=== PATIENT | female | born 1995 | race Hispanic/Latino ===

== ENCOUNTER 2017-06-21 12:56 | Emergency (ER) | payer BC | END 2017-06-21 13:29 | disposition left against medical advice (07) | LOC: ERS 12:56 | DX: Z53.21 Procedure and treatment not carried out due to patient leaving prior to being seen by health care provider (principal) ==

== ENCOUNTER 2018-01-01 19:59 | Day surgery (SDC) | payer OTHER ==
[2018-01-01 20:42] VITALS: BMI 29.7
[2018-01-01 20:44] VITALS: BP 116/86; TEMP 98.6
[2018-01-01 21:31] LABS: Bilirubin Negative (Negative); Blood, Urine Small (Negative); Clarity CLEAR (Clear); Glucose, Urine (Dipstick) Negative (Negative); Leukocyte Negative (Negative); Nitrite Negative (Negative); Protein, Urine (Dipstick) Negative (Neg-Trace); Specific Gravity, Urine 1.008 (1.002-1.036); Urobilinogen 0.2 mg/dL (0.2-1.0); pH, Urine 7.5 (5.0-9.0)
[2018-01-01 21:33] LABS: Bacteria/HPF None Seen HPF (None Seen); Hyaline Casts/LPF 0-3 HYALINE CAST LPF (0-3 Hyaline); Pathc Cast-AUWi Flag 0.58 (0-2.49); Squamous Epithelial None Seen HPF (0-3); WBC/HPF 0-3 HPF (0-3)
--- NOTE | 2018-01-02 02:20 | SS ---
DATE OF EVALUATION: 01/01/2018 REGULAR PHYSICIAN: Praveen Noyola M.D. EVALUATING PHYSICIAN: Rashawn Cuevas M.D. CHIEF COMPLAINT: Lower abdominal discomfort and vaginal discharge. HISTORY OF PRESENT ILLNESS: Ms. Dickerson is a 22-year-old G2, P1-0-0-1 with an estimated date of confinement of 02/11/2018, who presents complaining of a 2- day history of lower abdominal discomfort with occasional cramping, now complaining of vaginal pressure and white vaginal discharge. She denies ruptured membranes or vaginal bleeding. Her care has been with Dr. Noyola and has been uncomplicated. PAST OBSTETRICAL HISTORY: Includes an uncomplicated vaginal delivery at term in 2015. PAST MEDICAL HISTORY: None. PAST SURGICAL HISTORY: None. CURRENT MEDICATIONS: vitamins. ALLERGIES: No known allergies. SOCIAL HISTORY: She denies tobacco, alcohol, or drug use. FAMILY HISTORY: Unremarkable. REVIEW OF SYSTEMS: Positive for lower abdominal discomfort and vaginal discharge. Negative for nausea, vomiting, fever, chills, vaginal bleeding or ruptured membranes. PHYSICAL EXAMINATION: VITAL SIGNS: Blood pressure 116/86, pulse 85, respirations 18, temperature 98.6. ABDOMEN: Soft, nontender and gravid. PELVIC: Shows the cervix to be closed, 50% effaced with the presenting part high. heart rate tracing is stable. No significant uterine contractions are seen. LABORATORY DATA: Urinalysis is negative with the exception of a small amount of blood on dipstick. No bacteria are seen. X RAY TECH-3 panel is entirely negative. ASSESSMENT: 1. 34 and 1/7 week intrauterine . 2. No evidence of labor. 3. Suspect round ligament pain as etiology for lower abdominal discomfort. PLAN: The patient will be discharged to home. She was told to rest at home tonight and contact Dr. Noyola's office in the morning. She was told to return for regular contractions, ruptured membranes or vaginal bleeding. She voiced understanding of her discharge instructions and was sent home in good condition. PAM
== END 2018-01-01 23:15 | disposition home or self-care (01) ==
LOC: L&D/OP 19:59
PROVIDERS: ATTEND Obstetrics & Gynecology
DX: O99.89 Other specified diseases and conditions complicating pregnancy, childbirth and the puerperium (principal); R10.9 Unspecified abdominal pain; N89.8 Other specified noninflammatory disorders of vagina; Z3A.34 34 weeks gestation of pregnancy
CPT/HCPCS: 81003; 81015; 87480; 87510; 87660; 99284

== ENCOUNTER 2018-01-23 12:46 | Inpatient (IN) | payer OTHER ==
[2018-01-23 16:15] VITALS: BMI 32.3
[2018-01-23] MEDS: Lactated Ringer's 1,000 ML IV SCH ×2 (17:45→19:08)
[2018-01-23] MEDS ORDERED: Zolpidem Tartrate 5 MG TAB PO PRN (18:48)
[2018-01-23] MEDS ORDERED: NS w/ Oxytocin 10 units 500 ML IV SCH (18:48)
[2018-01-23] MEDS ORDERED: Ibuprofen 800 MG TAB PO PRN (18:48)
[2018-01-23] MEDS ORDERED: Butorphanol Tartrate 1 MG/ML VIAL SLOW IVP PRN (18:48)
[2018-01-23] MEDS ORDERED: Lidocaine 1% (PF) 30 ML VIAL SC PRN (18:48)
[2018-01-23] MEDS ORDERED: Promethazine HCl 25 MG/ML VIAL IM PRN (18:48)
[2018-01-23] MEDS ORDERED: HYDROcodone/Acetaminophen 5/325 mg Tablet PO PRN ×2 (18:48)
[2018-01-23] MEDS ORDERED: Ondansetron HCl/PF 4 MG/2 ML Vial IVP PRN (18:48)
[2018-01-23 19:09] LABS: Hemoglobin 12.4 g/dL (12.0-16.0); Mean Corpuscular Hemoglobin 32.8 pg (27.0-31.0); Mean Corpuscular Volume 93.5 fL (78.0-98.0); Mean Platelet Volume 6.7 fL (7.4-10.4); Platelet Count 254 thou/uL (130-400); RBC Distribution Width 11.5 % (11.5-14.5); Red Blood Cell (RBC) Count 3.78 mill/uL (4.20-5.40); White Blood Cell (WBC) Count 12.8 thou/uL (4.8-10.8)
--- NOTE | 2018-01-23 19:34 | ULT ---
LIMITED OBSTETRICAL ULTRASOUND: INDICATIONS: Biophysical profile. FINDINGS: No comparisons. There is a single intrauterine gestation, in vertex presentation. The placenta is posterior in locat ion without evidence of previa. The NO is 8.3 cm, which is just above the 5th percentile for gestational age. The fetus received 2/2 for movement; 2/2 for tone; 0/2 for breathing; 2/2 for amnio tic fluid level. IMPRESSION: 1. Biophysical profile 11/25. There was documented movement; however, the profile grinder technician did not no te evidence of breathing, giving a score of 6/8. 2. Cardiac activity is noted at 136 beats per minute. 3. Amniotic fluid index of 8.3 cm is just above the 5th percentile based on gestational age. POS: ISABEL
[2018-01-23 19:48] LABS: HBSAg Index 0.22 S/CO (0-0.99); Hep B Surf Ag Non-Reactive S/CO (NonReactive); Syphilis Antibody Nonreactive (Nonreactive); Syphilis Antibody Index 0.05 S/CO (<1.00 Non-Reactive)
[2018-01-24] MEDS: Lactated Ringer's 1,000 ML IV SCH ×3 (03:11→09:39)
[2018-01-24] MEDS ORDERED: Bupivacaine 0.5% 20 ML, fentaNYL Citrate/PF 400 MCG in Sodium Chloride 0.9% 72 ML EPIDURAL SCH (07:30)
[2018-01-24] MEDS ORDERED: DISCONTINUE ALL PREVIOUS NARCOTICS FS SCH (07:30)
[2018-01-24] MEDS ORDERED: Ondansetron HCl/PF 4 MG/2 ML Vial IVP PRN ×2 (08:19→15:32)
[2018-01-24] MEDS ORDERED: Lactated Ringer's 500 ML IV PRN (08:19)
[2018-01-24] MEDS ORDERED: ePHEDrine/0.9% NaCl/PF SYRINGE 50 mg/10 ml SLOW IVP PRN (08:19)
[2018-01-24] MEDS ORDERED: Promethazine HCl 25 MG/ML VIAL IM PRN (08:19)
[2018-01-24] MEDS ORDERED: Eucerin (Mineral Oil/Petrolatum,White) 30 gm Jar TOP PRN (08:19)
[2018-01-24] MEDS ORDERED: Naloxone HCl 0.4 mg/ml Vial IVP PRN ×2 (08:19)
[2018-01-24] MEDS ORDERED: diphenhydrAMINE 50 MG/ML VIAL IVP PRN (08:19)
[2018-01-24] MEDS ORDERED: Acetaminophen 325 MG TAB PO PRN (08:19)
[2018-01-24] MEDS ORDERED: fentaNYL Citrate/PF 400 MCG, Bupivacaine 0.5% 20 ML in Sodium Chloride 0.9% 72 ML EPIDURAL SCH (08:30)
[2018-01-24] MEDS ORDERED: Communication Order-Pharmacy FS ONE (08:30)
[2018-01-24] MEDS ORDERED: Misoprostol 200 MCG TAB ONE (13:09)
[2018-01-24] MEDS ORDERED: Methylergonovine 0.2 MG/ML VIAL ONE (13:12)
[2018-01-24] MEDS: NS / Oxytocin 40 units/1000ml 1,000 ML IV PRN ×2 (14:34→14:45)
[2018-01-24] MEDS ORDERED: Bisacodyl 10 MG SUPP PR PRN (15:32)
[2018-01-24] MEDS ORDERED: Benzocaine/Menthol 20-0.5% 60 ML CAN TOP PRN (15:32)
[2018-01-24] MEDS ORDERED: Milk Of Magnesia 30 ML UDCUP PO PRN (15:32)
[2018-01-24] MEDS ORDERED: NS / Oxytocin 40 units/1000ml 1,000 ML IV SCH (15:32)
[2018-01-24] MEDS ORDERED: Adacel (T-DAP) 0.5 ML VIAL IM ONE (15:32)
[2018-01-24] MEDS ORDERED: Preparation H Ointment 28 GM TUBE PR PRN (15:32)
[2018-01-24] MEDS ORDERED: Lanolin Ointment 7 GM TUBE TOP PRN (15:32)
[2018-01-24] MEDS: Ibuprofen 800 MG TAB PO SCH (15:46)
[2018-01-24] MEDS: Ferrous Sulfate 325 MG TAB PO SCH (16:21)
--- NOTE | 2018-01-24 20:40 | PDOC.OPDEL ---
OB Operative/Delivery Note Delivery Dr/Surgeon: Praveen Noyola MD Pre-Delivery Diagnosis: elective induction, medically indicated induction Procedure/Post Delivery Dx: spontaneous vaginal delivery Anesthesia: epidural - Additional Findings/Plan Placenta delivered: spontaneous Repaired Obstetrical Laceration: 1st degree Estimated blood loss: 515 Post delivery plan: routine recovery (Cytotec and Methergine given post for mild post hemorrhage.)
[2018-01-24] MEDS: Docusate Calcium (SURFAK) 240 MG CAP PO SCH (21:54)
[2018-01-25] MEDS: Ibuprofen 800 MG TAB PO SCH ×4 (00:11→15:34)
[2018-01-25 05:16] VITALS: TEMP 98
[2018-01-25 05:50] LABS: Hemoglobin 11.5 g/dL (12.0-16.0); Mean Platelet Volume 7.1 fL (7.4-10.4); Platelet Count 225 thou/uL (130-400); RBC Distribution Width 11.4 % (11.5-14.5); Red Blood Cell (RBC) Count 3.61 mill/uL (4.20-5.40); White Blood Cell (WBC) Count 14.9 thou/uL (4.8-10.8)
[2018-01-25] MEDS: Docusate Calcium (SURFAK) 240 MG CAP PO SCH (08:35)
[2018-01-25] MEDS: Ferrous Sulfate 325 MG TAB PO SCH ×2 (08:36→16:50)
[2018-01-25 08:46] VITALS: BP 110/73
[2018-01-25] MEDS ORDERED: Prenatal Vitamin 1 TAB PO SCH (09:00)
[2018-01-25] MEDS ORDERED: Measles/Mumps/Rubella 10 MCG/0.5 ML VIAL SC ONE (12:00)
--- NOTE | 2018-01-25 18:14 | PDOC.PP ---
Post Progress Note PO intake tolerated: yes Flatus: yes Ambulation: yes Vital Signs (12 hours) Temp Pulse Resp BP 01/25/18 07:45 98.0 F 77 16 110/73 Weight Weight 194 lb - Physical Examination General: NAD Cardiovascular: no m/r/g, RRR Respiratory: clear to auscultation bilaterally, non-labored breathing Abdominal: + bowel sounds, lochia, no distention, appropriately TTP Extremities: negative homans (B) Neurological: no gross focal deficits Psychiatric: A&Ox3, normal affect Result Diagrams: 01/25/18 04:50 Additional Labs: Post Labs Blood Type O POSITIVE 01/23/18 19:02 Hep Bs Antigen Non-Reactive S/CO (NonReactive) 01/23/18 19:02 - Assessment/Plan Patient is PPD #1 and doing very well. Ready for DC to home.
== END 2018-01-25 16:50 | disposition home or self-care (01) | DRG 775 ==
LOC: L&D 12:46 → 3SW 01-24 15:17
PROVIDERS: ADMIT Obstetrics & Gynecology; ATTEND Obstetrics & Gynecology
PROC: 10E0XZZ Delivery of Products of Conception, External Approach (ICD-10-PCS; principal; 2018-01-23)
PROC: 0HQ9XZZ Repair Perineum Skin, External Approach (ICD-10-PCS; 2018-01-23)
PROC: 3E033VJ Introduction of Other Hormone into Peripheral Vein, Percutaneous Approach (ICD-10-PCS; 2018-01-23)
DX: O70.0 First degree perineal laceration during delivery (principal); Z3A.37 37 weeks gestation of pregnancy; Z37.0 Single live birth
CPT/HCPCS: 36415; 51702; 76819; 85027; 86780; 86850; 86900; 86901; 87340; 90707; J2210; J3010; J3490; J7050

== ENCOUNTER 2019-01-27 15:06 | Emergency (ER) | payer OTHER ==
[2019-01-27 15:29] LABS: #Basophils 0.1 thou/uL (0.0-0.2); #Eosinphils 0.4 thou/uL (0.0-0.7); #Lymphocytes 3.1 thou/uL (1.20-3.40); #Monocytes 0.8 thou/uL (0.11-0.59); #Neutrophils 5.6 thou/uL (1.40-6.50); %Eosinophils 4.2 % (0.0-10.0); %Lymphocytes 31.2 % (21.0-51.0); %Monocytes 8.1 % (0.0-10.0); %Neutrophils 55.6 % (42.0-75.0); Hemoglobin 14.2 g/dL (12.0-16.0); Mean Corpuscular HGB CONC 33.6 g/dL (32.0-36.0); Mean Corpuscular Hemoglobin 31.1 pg (27.0-31.0); Mean Corpuscular Volume 92.5 fL (78.0-98.0); Mean Platelet Volume 6.9 fL (7.4-10.4); Platelet Count 410 thou/uL (130-400); RBC Distribution Width 11.5 % (11.5-14.5); Red Blood Cell (RBC) Count 4.55 mill/uL (4.20-5.40)
[2019-01-27 16:05] LABS: Bilirubin Negative (Negative); Blood, Urine Large (Negative); Clarity Cloudy (Clear); Glucose, Urine (Dipstick) Negative (Negative); Leukocyte Trace (Negative); Nitrite Negative (Negative); Protein, Urine (Dipstick) 30 mg/dL (Neg-Trace)
[2019-01-27 16:13] LABS: Bacteria/HPF 1+ HPF (None Seen); WBC/HPF 0-3 HPF (0-3)
--- NOTE | 2019-01-27 19:05 | ULT ---
US Pelvic Transvag W Doppler History: . Vaginal bleeding. Comparison: Ultrasound biophysical profile 2018 Findings: Real-time grayscale and color and spectral analysis of the pelvis performed transabdominal and transvaginal approach. There is an intrauterine gestational sac with mean sac diameter 4.81 cm. A yolk sac is present althou gh there is no pole. Small chronic subchorionic hemorrhage. Left ovary is normal with adequate vascular flow with a 1.7 cm paraovarian cyst. Right ovary is not v isualized. Impression: Large gestational sac with a yolk sac without pole suggesting demise.
[2019-01-27] MEDS ORDERED: Acetaminophen 500 MG TAB ONE (19:20)
== END 2019-01-27 20:15 | disposition home or self-care (01) ==
LOC: ERS 15:06
DX: O20.0 Threatened abortion (principal); O99.341 Other mental disorders complicating pregnancy, first trimester; F41.9 Anxiety disorder, unspecified; O99.511 Diseases of the respiratory system complicating pregnancy, first trimester; J45.909 Unspecified asthma, uncomplicated; Z3A.09 9 weeks gestation of pregnancy
CPT/HCPCS: 36415; 76856; 81003; 81015; 84702; 85025; 86900; 86901

== ENCOUNTER → 2019-01-30 | Day surgery (SDC) | payer OTHER ==
[~2019-01-30] MED LIST: Fentanyl 100 MCG/2 ML VIAL ONE; Lidocaine 2% Jelly 5 ML TUBE ONE; Midazolam HCl 2 mg/2 ml Vial ONE; Morphine 4 MG/ML VIAL ONE; Ondansetron PF 4 MG/2 ML Vial ONE; Oxytocin 10 UNITS/ML VIAL ONE
[2019-01-30 15:43] LABS: #Basophils 0.1 thou/uL (0.0-0.2); #Eosinphils 0.6 thou/uL (0.0-0.7); #Lymphocytes 3.2 thou/uL (1.20-3.40); #Monocytes 0.8 thou/uL (0.11-0.59); #Neutrophils 7.9 thou/uL (1.40-6.50); %Basophils 0.7 % (0.0-1.0); %Eosinophils 4.7 % (0.0-10.0); %Lymphocytes 25.9 % (21.0-51.0); %Monocytes 6.1 % (0.0-10.0); %Neutrophils 62.7 % (42.0-75.0); Hemoglobin 13.1 g/dL (12.0-16.0); Mean Corpuscular Hemoglobin 31.4 pg (27.0-31.0); Mean Corpuscular Volume 92.4 fL (78.0-98.0); Mean Platelet Volume 7.2 fL (7.4-10.4); Platelet Count 389 thou/uL (130-400); RBC Distribution Width 11.4 % (11.5-14.5); Red Blood Cell (RBC) Count 4.18 mill/uL (4.20-5.40); White Blood Cell (WBC) Count 12.5 thou/uL (4.8-10.8)
[2019-01-30 17:19] LABS: Anion Gap 13 mmol/L (10-20); BUN (Urea Nitrogen) 7 mg/dL (7.0-18.7); Calc. Creatinine Clearance 0 mL/min (70-130); Calcium 9.7 mg/dL (7.8-10.44); Carbon Dioxide 23 mmol/L (22-29); Chloride 107 mmol/L (98-107); Estimated GFR-MDRD Greater than 90; Glucose 96 mg/dL (70-105); Potassium 3.7 mmol/L (3.5-5.1); Sodium 139 mmol/L (136-145)
== END ==
LOC: ERS 15:08 → SDC/OP 18:04
PROVIDERS: ATTEND Obstetrics & Gynecology
PROC: 10D17ZZ Extraction of Products of Conception, Retained, Via Natural or Artificial Opening (ICD-10-PCS; principal; 2019-01-30)
DX: O02.1 Missed abortion (principal); J45.909 Unspecified asthma, uncomplicated; F41.9 Anxiety disorder, unspecified
CPT/HCPCS: 80048; 84702; 85025; 86850; 86900; 86901; 88305; 96361; 96374; 96375; J2250; J2270; J2405; J2590; J3010

== ENCOUNTER 2020-09-10 11:11 | Emergency (ER) | payer SELFPAY ==
[2020-09-10] MEDS ORDERED: Ketorolac Tromethamine 30 MG/ML VIAL ONE (12:30)
[2020-09-10] MEDS ORDERED: Clindamycin 150 MG CAP ONE (12:30)
[2020-09-10] MEDS ORDERED: Dexamethasone 10 MG/ML VIAL ONE (12:30)
== END 2020-09-10 12:50 | disposition home or self-care (01) ==
LOC: ERS 11:11
DX: K04.7 Periapical abscess without sinus (principal); L03.211 Cellulitis of face
CPT/HCPCS: 96372; 99283; J1100; J1885

== ENCOUNTER 2020-10-23 10:58 | Emergency (ER) | payer SELFPAY ==
[2020-10-23] MEDS ORDERED: Ketorolac Tromethamine 30 MG/ML VIAL ONE (11:19)
[2020-10-23 11:30] LABS: #Basophils 0.2 thou/uL (0.0-0.2); #Eosinphils 0.7 thou/uL (0.0-0.7); #Lymphocytes 3.1 thou/uL (1.20-3.40); #Neutrophils 7.4 thou/uL (1.40-6.50); %Basophils 1.5 % (0.0-1.0); %Eosinophils 5.8 % (0.0-10.0); %Lymphocytes 25.1 % (21.0-51.0); %Neutrophils 59.6 % (42.0-75.0); Hemoglobin 13.6 g/dL (12.0-16.0); Mean Corpuscular HGB CONC 31.7 g/dL (32.0-36.0); Mean Corpuscular Hemoglobin 30.3 pg (27.0-31.0); Mean Corpuscular Volume 95.6 fL (78.0-98.0); Mean Platelet Volume 7.2 fL (7.4-10.4); Platelet Count 381 thou/uL (130-400); RBC Distribution Width 11.5 % (11.5-14.5); Red Blood Cell (RBC) Count 4.49 mill/uL (4.20-5.40); White Blood Cell (WBC) Count 12.4 thou/uL (4.8-10.8)
[2020-10-23] MEDS ORDERED: Fentanyl 100 MCG/2 ML VIAL ONE ×2 (11:33→14:57)
[2020-10-23 11:38] LABS: BHCG - Serum Negative (NEGATIVE); Pregs Control Background? CLEAR/WHITE (CLR/WHITE); Pregs Control Bar Appear? YES (CONTROL BAR)
[2020-10-23 11:53] LABS: ALT (SGPT) 11 U/L (8-55); AST (SGOT) 16 U/L (5-34); Albumin 4.3 g/dL (3.5-5.0); Alkaline Phosphatase 71 U/L (40-110); Anion Gap 13 mmol/L (10-20); BUN (Urea Nitrogen) 12 mg/dL (7.0-18.7); Bilirubin, Total 0.3 mg/dL (0.2-1.2); Calc. Creatinine Clearance 0 mL/min (70-130); Calcium 9.2 mg/dL (7.8-10.44); Carbon Dioxide 23 mmol/L (22-29); Chloride 108 mmol/L (98-107); Glucose 109 mg/dL (70-105); Lipase 37 U/L (8-78); Potassium 3.9 mmol/L (3.5-5.1); Protein, Total 7.3 g/dL (6.0-8.3); Sodium 140 mmol/L (136-145)
[2020-10-23 12:11] LABS: Bacteria/HPF 1+ HPF (None Seen); Bilirubin Negative (Negative); Blood, Urine 3+ (Negative); Calcium Oxalate Crystals 4+ HPF (None Seen); Clarity Turbid (Clear); Glucose, Urine (Dipstick) Normal (Negative); Ketone, Urine Negative (Negative); Leukocyte Negative Leu/uL (Negative); Nitrite Negative (Negative); Protein, Urine (Dipstick) 20 mg/dL (Neg-Trace); RBC/HPF Greater than 50 HPF (0-3); Specific Gravity, Urine 1.026 (1.002-1.036); Urobilinogen Normal mg/dL (Less than 2); WBC/HPF 0-3 HPF (0-3)
[2020-10-23] MEDS ORDERED: Morphine 4 MG/ML VIAL ONE (12:58)
[2020-10-23 15:08] LABS: Bacteria/HPF None Seen HPF (None Seen); Bilirubin Negative (Negative); Blood, Urine 3+ (Negative); Clarity Clear (Clear); Glucose, Urine (Dipstick) Normal (Negative); Ketone, Urine Negative (Negative); Leukocyte Negative Leu/uL (Negative); Nitrite Negative (Negative); Protein, Urine (Dipstick) 20 mg/dL (Neg-Trace); RBC/HPF Greater than 50 HPF (0-3); Specific Gravity, Urine 1.025 (1.002-1.036); Squamous Epithelial 0-3 HPF (0-3); Urobilinogen Normal mg/dL (Less than 2); WBC/HPF 0-3 HPF (0-3)
== END 2020-10-23 15:42 | disposition home or self-care (01) ==
LOC: ERS 10:58
DX: N13.2 Hydronephrosis with renal and ureteral calculous obstruction (principal); R11.2 Nausea with vomiting, unspecified
CPT/HCPCS: 51701; 74176; 80053; 81003; 81015; 83690; 84703; 85025; 96374; 96375; 96376; J1885; J2270; J3010

== ENCOUNTER 2021-06-16 09:22 | Emergency (ER) | payer SELFPAY ==
[2021-06-16 19:51] LABS: SARS-CoV-2 PCR by NAA Not Detected (NotDetected)
== END 2021-06-16 11:10 | disposition home or self-care (01) ==
LOC: ERS 09:22
DX: B34.9 Viral infection, unspecified (principal); Z20.822 Contact with and (suspected) exposure to COVID-19
CPT/HCPCS: 99283; U0003; U0005